=== PATIENT | female | born 1955 | race Caucasian/White ===

== ENCOUNTER → 2018-08-18 | Outpatient (CLI) | payer OTHER ==
--- NOTE | 2018-08-18 15:57 | PCVCIMAG ---
APPROVED REPORT Study performed: 08/18/2018 14:32:09 EXAM: Comprehensive 2D, Doppler, and color-flow Echocardiogram Patient Location: Echo lab Status: routine BSA: 1.98 HR: 68 bpmBP: 116/80 mmHg Rhythm: NSR Other Information Study Quality: Adequate Risk Factors: Cardiac Risk Factors: HTN Indications Abnormal ECG Pre-Op 2D Dimensions IVSd: 12.15 (7-11mm) LVDd: 46.65 mm PWd: 11.03 (7-11mm)Ascending Ao: 42.52 (22-36mm) LVDs: 33.76 (25-40mm) Left Atrium: 40.06 (27-40mm) Aortic Root: 41.77 mm LV Single Plane 4CH: 63.64 % LV Single Plane 2CH: 68.22 % Biplane EF: 66.3 % Volumes Left Atrial Volume (Systole) Single Plane 4CH: 69.35 mLSingle Plane 2CH: 88.70 mL LA ESV Index: 42.00 mL/m2 Aortic Valve AoV Peak Thomas.: 1.62 m/s AO Peak Gr.: 10.48 mmHgLVOT Max P.30 mmHg LVOT Max V: 1.04 m/s Mitral Valve E/A Ratio: 0.8 MV Decel. Time: 286.28 ms MV E Max Thomas.: 0.56 m/s MV A Thomas.: 0.69 m/s IVRT: 131.49 ms Pulmonary Valve PV Peak Thomas.: 1.14 m/sPV Peak Gr.: 5.23 mmHg Pulmonary Vein P Vein S: 0.30 m/sP Vein A: 0.34 m/s P Vein D: 0.44 m/sP Vein A Dur.: 145.3 msec P Vein S/D Ratio: 0.68 Tricuspid Valve TR Peak Thomas.: 2.56 m/s TR Peak Gr.: 26.22 mmHg Left Ventricle The left ventricle is normal size. There is normal LV segmental wall motion. There is normal left ventricular wall thickness. Left ventricular systolic function is normal. The left ventricular ejection fraction is within the normal range. LVEF is 65%. Grade I - abnormal relaxation pattern. Right Ventricle The right ventricle is normal size. The right ventricular systolic function is normal. Atria Left atrium is mildly dilated. The right atrium size is normal. Aortic Valve The aortic valve is normal in structure. No aortic regurgitation is present. There is no aortic valvular stenosis. Mitral Valve The mitral valve is normal in structure. Trace mitral regurgitation. No evidence of mitral valve stenosis. Tricuspid Valve The tricuspid valve is normal in structure. Mild tricuspid regurgitation with PAP of 33 mmHg. Pulmonic Valve The pulmonary valve is normal in structure. There is no pulmonic valvular regurgitation. Great Vessels Aortic root is mildly dilated to 4.2 cm. The ascending aorta is mildly dilated 4.3 cm. IVC is normal in size and collapses >50% with inspiration. Pericardium There is no pericardial effusion. There is no pleural effusion. <Conclusion> The left ventricle is normal size. There is normal left ventricular wall thickness. Left ventricular systolic function is normal. Grade I - abnormal relaxation pattern. The right ventricle is normal size. Left atrium is mildly dilated. The aortic valve is normal in structure. Trace mitral regurgitation. Mild tricuspid regurgitation with PAP of 33 mmHg. The ascending aorta is mildly dilated 4.3 cm.
--- NOTE | 2018-08-18 16:00 | PCVCIMAG ---
APPROVED REPORT Study performed: 08/18/2018 15:13:53 Exam: Stress Echocardiogram Indication: pre-op evaluation, abn ekg, htn Patient Location: Echo lab Stress Nurse: Mikala Dozier RN Status: routine Ht: 5 ft 9 in HR: 68 bpm BP: 116/80 mmHg Rhythm: NSR Procedure The patient underwent an Exercise Stress Test using the Kenneth Protocol. Blood pressure, heart rate, and EKG were monitored. An Echocardiogram was performed by claim technician in four stages in quad fashion. At peak stress, four selected images were obtained and placed side by side with resting images for comparison. Stress Test Details Stress Test: Exercise stress testing was performed using a Kenneth protocol. HR Resting HR: 81 bpmMax Heart Rate (APMHR): 159 bpm Max HR Achieved: 150 bpmTarget HR (85% APMHR): 135 bpm % of APMHR: 94 Recovery HR: 86 bpm HR response to stress: Normal HR response to stress BP Resting BP: 116/80 mmHg Max BP: 166/80 mmHg Recovery BP: 130/70 mmHg ECG Resting ECG: Sinus Rhythm with PACs Stress ECG: Sinus Rhythm ST Change: Non-ischemic Arrhythmia: PACs Recovery ECG: Sinus Rhythm Recovery ST Change: Normal Recovery Arrhythmia: PACs Clinical Reason for Termination: Maximal effort Stress Symptoms: Dyspnea Exercise duration: 11 min 31 sec Highest Stage Achieved: Stage 4: 4.2 mph at 16% grade. Exercise capacity: 13.4 METs Overall Exercise Capacity for Age: Excellent Scale: Active Angina Score: None Pre-Stress Echo The resting Echocardiogram showed normal left ventricular contractility with an estimated Ejection Fraction of about >55%. Normal wall motion in all segments on baseline images. Post-Stress Echo The stress Echocardiogram showed normal left ventricular contractility with an estimated Ejection Fraction of about 65%. Normal augmentation of wall motion in all segments on post stress images. Clinical No clinical or ECG evidence for ischemia. Conclusion Clinical Response: Non-ischemic Exercise Capacity: Above average Stress ECG Response: Non-ischemic Stress Echo Images: Non-ischemic The left ventricle is normal in size and wall thickness in both the rest and stress images. Other Information Study Quality: Adequate <Conclusion> The left ventricle is normal in size and wall thickness in both the rest and stress images.
== END | disposition home or self-care (01) ==
LOC: PCVCIMAG 14:46
PROVIDERS: ATTEND Internal Medicine Cardiovascular Disease
DX: Z01.818 Encounter for other preprocedural examination (principal); R94.31 Abnormal electrocardiogram [ECG] [EKG]; I10 Essential (primary) hypertension; E78.5 Hyperlipidemia, unspecified
CPT/HCPCS: 93306; 93351